=== PATIENT | male | born 1990 | race Caucasian/White ===

== ENCOUNTER 2020-05-28 08:00 | Outpatient (RCR) | payer SELFPAY ==
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
== END 2020-05-28 19:00 | disposition home or self-care (01) ==
LOC: OT 08:00
DX: R69 Illness, unspecified (principal)
CPT/HCPCS: 97110; 97140; 97166; 97530

== ENCOUNTER → 2020-06-15 15:07 | Outpatient (CLI) | payer MEDICAID, SELFPAY ==
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
== END ==
PROVIDERS: PCP Internal Medicine; Referring Provider Psychiatry & Neurology Neurology; Visit Provider Psychiatry & Neurology Neurology
DX: G54.0 Brachial plexus disorders (principal); T14.8XXA Other injury of unspecified body region, initial encounter
CPT/HCPCS: 72156; 73220; A9575

== ENCOUNTER → 2020-06-16 13:34 | Outpatient (CLI) | payer MEDICAID, SELFPAY ==
[2020-06-16 13:55] LABS: Hematocrit 43.9 % (40-54); Hemoglobin 14.6 g/dL (13.0-16.5); Mean Corp Hgb Conc 33.3 g/dL (32-36); Mean Corpuscular Hgb 32.5 pg (27.0-32.0); Mean Corpuscular Volume 97.8 fL (80-94); Mean Platelet Vol. 9.3 fl (6.2-12.0); Platelet Count 265 K/mm3 (150-450); RBC Distribution Width CV 12.2 % (11.6-14.6); RBC Distribution Width SD 44.4 fl (35.1-43.9); Red Blood Count 4.49 M/mm3 (4.6-6.2); White Blood Count 4.8 K/mm3 (4.4-11.0)
[2020-06-16 14:26] LABS: Vitamin B12 436 pg/mL (211-911)
[2020-06-16 14:45] LABS: ALB/GLOB Ratio 1.3 RATIO (0.9-2.4); AST(SGOT) 11 U/L (15-37); Alanine Aminotransfer ALT/SGPT 23 U/L (16-61); Albumin, Serum 4.1 g/dL (3.2-5.0); Alkaline Phosphatase 68 U/L (45-117); Anion Gap 6 (5-15); BUN 8 mg/dL (7-18); BUN/Creat Ratio 12.7 RATIO (10-20); Calcium,Total 9.1 mg/dL (8.5-10.1); Chloride 106 mmol/L (98-107); Creatinine, Serum 0.63 mg/dL (0.70-1.30); EST Glomerular Filtration Rate 160 mL/min (>60); Est Glom Filt Rate - Afr Amer 194 mL/min (>60); Globulin 3.2 g/dL (2.2-4.2); Glucose 97 mg/dL (74-106); Potassium 3.8 mmol/L (3.5-5.1); Protein, Total 7.3 g/dL (6.4-8.2); Sodium Level 139 mmol/L (136-145)
[2020-06-25 13:03] LABS: Vitamin B1, Thiamine 129.9 nmol/L (66.5-200.0)
== END ==
PROVIDERS: PCP Internal Medicine; Referring Provider Psychiatry & Neurology Neurology; Visit Provider Psychiatry & Neurology Neurology
DX: G54.0 Brachial plexus disorders (principal); T14.8XXA Other injury of unspecified body region, initial encounter; S14.2 Injury of nerve root of cervical spine; S14.3XXA Injury of brachial plexus, initial encounter
CPT/HCPCS: 36415; 80053; 82607; 82746; 84425; 84443; 85027

== ENCOUNTER → 2020-06-17 13:54 | Outpatient (CLI) | payer MEDICAID, SELFPAY | PROVIDERS: PCP Internal Medicine; Referring Provider Psychiatry & Neurology Neurology; Visit Provider Psychiatry & Neurology Neurology | DX: G54.0 Brachial plexus disorders (principal); S14.2 Injury of nerve root of cervical spine ==

== ENCOUNTER → 2020-06-18 13:52 | Outpatient (CLI) | payer MEDICAID, SELFPAY ==
--- NOTE | 2020-06-18 13:53 | MRI_ITS ---
ACR Level 3 findings have been noted. An addendum which confirms receipt of the report will follow. STUDY: MRI THORACIC SPINE WITH AND WITHOUT CONTRAST REASON FOR EXAM: Male, 30 years old. Suspicious incidental thoracic spinal cord tumor on recent MRI of the right brachial plexus of 06/15/2020. For further evaluation. TECHNIQUE: 15ml IV Dotarem was administered for the contrast portion of the examination. Routine pulse sequences of the thoracic spine without and with contrast. COMPARISON: None. FINDINGS: Normal kyphosis of the thoracic spine. There is no substantial scoliosis. T1-2, T2-3, T3-4, T4-5, T5-6, T6-7, T7-8, T8-9, T9-10, T10-11, T11-12: Minimal disc space height narrowing with minimal disc space hydration at T4-T5, T7-T8 and T8-T9 disc space levels. Normal remaining disc space heights. Normal vertebral bodies and endplates. No ventral extradural defects. No intradural mass lesions. Normal bilateral intervertebral neural foramina. No extruded disc fragments. Abnormal expansile T2 FLAIR hyperintensity of the thoracic spinal cord from the T4-T5 disc space level down to the mid T6 vertebral body level. This is mildly hypointense on T1. No obvious contrast enhancement. Mild enlargement of the thoracic spinal cord with T2 FLAIR hyperintensity at the lower T7 vertebral body level down to the lower T8 vertebral body level. This did not enhance with contrast. Additional intramedullary high signal intensity of the thoracic spinal cord at T10 down to T11. They appear more linear without definite expansion of the spinal cord. This did not enhance with contrast. Normal conus medullaris but termination is not included. The conus extends below the lower L1 vertebral body level. The soft tissue structures are unremarkable. No intradural or extradural enhancing mass lesions. There are prominent asymmetric subarachnoid spaces at T6 down to T9 vertebral body levels. I am uncertain if these are due to adhesions forming subarachnoid cysts. MRI/Spine Thoracic W/WO Contrast IMPRESSION: Abnormal intramedullary expansile lesion of the thoracic spinal cord at T4-T5 down to the lower T6 vertebral body level and abnormal nonexpansile intramedullary lesion of the thoracic spinal cord at the lower T7 down to the lower T8 vertebral body and at the T10 down to T11 vertebral body levels. None of these enhance with intravenous contrast. Additionally, there are asymmetric prominent subarachnoid spaces at T6 down to T9 vertebral bodies uncertain for posttraumatic adhesions forming subarachnoid cysts. The absence of contrast enhancement does not favor neoplasm. They may be posttraumatic changes. The possibility of nonenhancing neoplasm of the thoracic spinal cord involving T5 down to T6 cannot be entirely excluded. Follow-up MRI of the thoracic spine with and without contrast and correlation with CSF findings will be helpful for further evaluation. Electronically Signed: Burak Hylton MD at 13:19 EST , Service support ,
== END ==
PROVIDERS: PCP Internal Medicine; Referring Provider Psychiatry & Neurology Neurology; Visit Provider Psychiatry & Neurology Neurology
DX: G95.89 Other specified diseases of spinal cord (principal)
CPT/HCPCS: 72157; A9575

== ENCOUNTER → 2020-06-23 17:14 | Outpatient (CLI) | payer MEDICAID, SELFPAY ==
[2020-06-27 20:07] LABS: Testosterone, Free 9.57 ng/dL (5.00-21.00)
[2020-06-27 21:17] LABS: Testosterone, % Free 3.52 % (1.50-4.20); Testosterone, Total 272 ng/dL (264-916)
== END ==
PROVIDERS: PCP Internal Medicine; Referring Provider Psychiatry & Neurology Neurology; Visit Provider Psychiatry & Neurology Neurology
DX: E29.1 Testicular hypofunction (principal)
CPT/HCPCS: 36415; 84402; 84403

== ENCOUNTER 2024-06-14 11:52 | Emergency (ER) | payer MEDICARE, SELFPAY ==
[2024-06-14] VITALS (7 sets, daily range): BP systolic 128–157; BP diastolic 92–108; PULSE 78–102; RESP 14–18; TEMP 36.8–36.9; O2SAT 20–100; BMI 22.7
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
--- NOTE | 2024-06-14 12:35 | EKG12_ITS ---
Test Reason : CP Blood Pressure : */* mmHG Vent. Rate : 94 BPM Atrial Rate : 94 BPM P-R Int : 162 ms QRS Dur : 94 ms QT Int : 326 ms P-R-T Axes : 69 82 61 degrees QTcB Int : 407 ms Normal sinus rhythm Normal ECG Confirmed by Terrell Lindquist ([id number]), newspaper editor ERICA MAST ([id number]) on 06/17/2024 9:56:05 AM Referred By: SAVANNAH/LIZ Confirmed By: Terrell Lindquist
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
[2024-06-14 13:12] LABS: Absolute Lymphocyte Count 1.71 X10^3/uL (0.83-4.51); Absolute Neutrophil Count 6.9 X10^3/uL (2.0-7.7); Basophil# 0.02 X10^3/uL; Basophil% 0.2 % (0-1); Eosinophil# 0.02 X10^3/uL; Eosinophils% 0.2 % (0-5); Hematocrit 42.6 % (40-54); Hemoglobin 14.4 g/dL (13.0-16.5); Lymphocyte # 1.71 X10^3/ul (0.83-4.51); Lymphocyte % 18.8 % (19-41); Mean Corp Hgb Conc 33.8 g/dL (32-36); Mean Corpuscular Hgb 32.7 pg (27.0-32.0); Mean Corpuscular Volume 96.8 fL (80-94); Mean Platelet Vol. 9.4 fl (6.2-12.0); Monocyte# 0.48 X10^3/uL; Monocyte% 5.3 % (0-10); NRBC Flagged by Analyzer 0 % (0-5); Neutrophil # 6.86 X10^3/uL (2.7-7.7); Neutrophil % 75.3 % (47-70); Platelet Count 304 K/mm3 (150-450); RBC Distribution Width CV 13.2 % (11.6-14.6); RBC Distribution Width SD 47.2 fl (35.1-43.9); White Blood Count 9.1 K/mm3 (4.4-11.0)
[2024-06-14 13:40] LABS: Anion Gap 6 (5-15); BUN 7 mg/dL (7-18); BUN/Creat Ratio 11.3 RATIO (10-20); Calcium,Total 9.8 mg/dL (8.5-10.1); Chloride 107 mmol/L (98-107); Creatinine, Serum 0.62 mg/dL (0.70-1.30); EST Glomerular Filtration Rate 158 mL/min (>60); Est Glom Filt Rate - Afr Amer 191 mL/min (>60); Estimated Creatinine Clearance 177.13 ml/min; Glucose 101 mg/dL (74-106); Potassium 3.7 mmol/L (3.5-5.1); Sodium Level 139 mmol/L (136-145); Troponin-I HS < 3 pg/mL (3.0-78.0)
[2024-06-14] MEDS: Piperacil/Tazobactam 4.5 GM in 0.9% Normal Saline (100mL MB+) 100 ML IV (16:22)
[2024-06-14] MEDS: HYDROmorphone 1 MG/ML Syringe IV (16:23)
[2024-06-14] MEDS: Ondansetron 4 MG/2 ML Vial IV (16:23)
[2024-06-14 16:36] LABS: International Normalized Ratio 1.1; Prothrombin Time (Protime)PT. 14.3 SECONDS (11.7-14.9)
[2024-06-14 16:37] LABS: Partial Thromboplast Time 30.2 Seconds (24.1-36.2)
[2024-06-14 16:47] LABS: AST(SGOT) 12 U/L (15-37); Alanine Aminotransfer ALT/SGPT 21 U/L (16-61); Alkaline Phosphatase 70 U/L (45-117); Bilirubin, Direct 0.15 mg/dL (0.00-0.30); Globulin 3.4 g/dL (2.2-4.2); Protein, Total 7.4 g/dL (6.4-8.2)
--- NOTE | 2024-06-14 17:00 | ED.RN ---
CALLED [facility] @ [phone] AND STILL NO UPDATE FOR THE PATIENT
[2024-06-14 17:02] LABS: Lactic Acid 0.9 mmol/L (0.4-1.9)
[2024-06-14] MEDS: Vancomycin HCl 1,750 MG in 0.9% Normal Saline (500mL Bag) 500 ML 250 MG IV (17:20)
--- NOTE | 2024-06-14 20:35 | CM.ED ---
Social Work Reason for visit: No PCP Patient verified that he does not have a PCP, patient recently moved to [place] from [place]. [facility] provider list was given. Patient also had questions regarding [place] Medicaid, SW answered questions as able and encourage patient to go through application process. No further needs identified at this time. Reny Mcdonough, INTEGRATION ENGINEER, SURVEY SUPERINTENDENT
--- NOTE | 2024-06-15 06:22 | ED.RN ---
This RN spoke to [facility] regarding pt's antibiotic dosages and times meds had been administered. Questions/concerns answered.
--- NOTE | 2024-06-15 06:42 | ED.RN ---
This nurse to room after being asked by MELVIN Navarro to address pt concerns. Pt concerned about transferring hospital being closest appropriate, pain medication, being able to eat and also stated he had received a call from [facility] that he needed to pay $1000 up front prior to transport. Spoke to Dr. Martinez, she states only [facility] and [facility] had specialties available to care for pt per Dr. Beatty, and that [facility] did not have any beds available. Phone call placed to [facility], [facility] states that if [facility] physician feels pt is stable for private care transport, that they will still accept pt as a transfer and he should be taken right back to a room and should bypass triage. Pt informed of same. Dr. Martinez states if pt wants anything other than tylenol, he will need to be observed. Informed pt of same, pt states he had been waiting over 10 hours at this point and just wanted to get to [facility]. Pt has reach lift truck driver, pt signs transfer form and private car transport, reach lift truck driver signs private car transport. Chart given to patient. Pt requests documentation from doctor that no other closer hospitals were available, Dr. Martinez documents what she was told by Dr. Beatty. Pt requests Dr. Beatty to be contacted and to document no other hospitals available, this nurse assures pt that this nurse will reach out to him and make request.
== END 2024-06-14 22:43 | disposition short-term general hospital (02) ==
PROVIDERS: Emergency Provider Emergency Medicine; Visit Provider Emergency Medicine
DX: R07.9 Chest pain, unspecified (principal); R22.1 Localized swelling, mass and lump, neck; J45.909 Unspecified asthma, uncomplicated; F17.210 Nicotine dependence, cigarettes, uncomplicated; R45.1 Restlessness and agitation
CPT/HCPCS: 70498; 71275; 80048; 80076; 83605; 84443; 84484; 85025; 85610; 85730; 87040; 93005; 96365; 96366; 96367; 96375; 99285; Q9967; A4216; J2405

== ENCOUNTER → 2024-06-24 | Outpatient (CLI) | payer MEDICARE, SELFPAY ==
[2024-06-24 11:57] LABS: Absolute Lymphocyte Count 1.24 X10^3/uL (0.83-4.51); Absolute Neutrophil Count 7.2 X10^3/uL (2.0-7.7); Basophil# 0.03 X10^3/uL; Basophil% 0.3 % (0-1); Eosinophil# 0.03 X10^3/uL; Eosinophils% 0.3 % (0-5); Hematocrit 33.4 % (40-54); Lymphocyte # 1.24 X10^3/ul (0.83-4.51); Lymphocyte % 13.8 % (19-41); Mean Corp Hgb Conc 32.9 g/dL (32-36); Mean Corpuscular Hgb 32.4 pg (27.0-32.0); Mean Corpuscular Volume 98.5 fL (80-94); Mean Platelet Vol. 9.3 fl (6.2-12.0); Monocyte# 0.46 X10^3/uL; Monocyte% 5.1 % (0-10); NRBC Flagged by Analyzer 0 % (0-5); Neutrophil # 7.19 X10^3/uL (2.7-7.7); Neutrophil % 80.1 % (47-70); Platelet Count 503 K/mm3 (150-450); RBC Distribution Width CV 13.9 % (11.6-14.6); RBC Distribution Width SD 48.9 fl (35.1-43.9); Red Blood Count 3.39 M/mm3 (4.6-6.2)
[2024-06-24 15:55] LABS: AST(SGOT) 14 U/L (<=37); Alanine Aminotransfer ALT/SGPT 15 U/L (<=46); Albumin, Serum 4.4 g/dL (3.5-5.0); Alkaline Phosphatase 54 U/L (40-129); Anion Gap 15 (5-15); BUN 9 mg/dL (4-19); BUN/Creat Ratio 16.2 RATIO (10-20); Bilirubin, Direct 0.17 mg/dL (0.00-0.30); Calcium 9.6 mg/dL (7.6-11.0); Carbon Dioxide 22.2 mmol/L (22.0-29.0); Chloride 106 mmol/L (96-108); Creatinine, Serum 0.55 mg/dL (0.70-1.20); EST Glomerular Filtration Rate 134 (>60); Globulin 2.6 g/dL (2.2-4.2); Glucose 106 mg/dL (70-99); Potassium 4.3 mmol/L (3.3-5.1); Sodium Level 142 mmol/L (133-145); Total Bilirubin 0.33 mg/dL (0.00-1.30)
== END | disposition home or self-care (01) ==
PROVIDERS: Referring Provider Pediatrics; Visit Provider Pediatrics
DX: T82.7XXA Infection and inflammatory reaction due to other cardiac and vascular devices, implants and grafts, initial encounter (principal); L02.11 Cutaneous abscess of neck; E87.0 Hyperosmolality and hypernatremia; X58.XXXA Exposure to other specified factors, initial encounter
CPT/HCPCS: 80048; 80076; 85025; 85049

== ENCOUNTER 2024-06-29 12:00 | Emergency (ER) | payer MEDICARE, SELFPAY ==
[2024-06-29 12:01] VITALS: BP 146/92; PULSE 111; RESP 19; TEMP 36.7; O2SAT 94
[2024-06-29 12:03] VITALS: BMI 19.1
[2024-06-29 12:04] VITALS: BP 146/92; PULSE 111; RESP 19; TEMP 36.7; O2SAT 94
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
[2024-06-29] MEDS: 0.9% Normal Saline (1000mL) 1,000 ML 1000 ML IV (13:12)
[2024-06-29] MEDS: Metoclopramide 10 MG/2 ML Vial IV (13:12)
[2024-06-29 13:24] LABS: Absolute Lymphocyte Count 0.96 X10^3/uL (0.83-4.51); Absolute Neutrophil Count 9.8 X10^3/uL (2.0-7.7); Basophil# 0.03 X10^3/uL; Basophil% 0.3 % (0-1); Eosinophil# 0.02 X10^3/uL; Eosinophils% 0.2 % (0-5); Hematocrit 38.2 % (40-54); Hemoglobin 13.1 g/dL (13.0-16.5); Lymphocyte # 0.96 X10^3/ul (0.83-4.51); Lymphocyte % 8.5 % (19-41); Mean Corp Hgb Conc 34.3 g/dL (32-36); Mean Corpuscular Hgb 33.2 pg (27.0-32.0); Mean Corpuscular Volume 96.7 fL (80-94); Mean Platelet Vol. 8.9 fl (6.2-12.0); Monocyte# 0.47 X10^3/uL; Monocyte% 4.2 % (0-10); NRBC Flagged by Analyzer 0 % (0-5); Neutrophil # 9.77 X10^3/uL (2.7-7.7); Neutrophil % 86.4 % (47-70); Platelet Count 646 K/mm3 (150-450); RBC Distribution Width CV 14.5 % (11.6-14.6); RBC Distribution Width SD 51.9 fl (35.1-43.9); Red Blood Count 3.95 M/mm3 (4.6-6.2); White Blood Count 11.3 K/mm3 (4.4-11.0)
[2024-06-29] MEDS: Pantoprazole Sodium 40 MG in 0.9% Normal Saline (100mL MB+) 100 ML 330 MG IV (13:28)
[2024-06-29 14:01] VITALS: BP 112/82; PULSE 74; RESP 16; O2SAT 97
[2024-06-29 14:20] LABS: Lipase 18 U/L (13-75)
[2024-06-29 14:22] LABS: ALB/GLOB Ratio 1.4 RATIO (0.9-2.4); AST(SGOT) 18 U/L (<=37); Alanine Aminotransfer ALT/SGPT 12 U/L (<=46); Albumin, Serum 5.1 g/dL (3.5-5.0); Alkaline Phosphatase 74 U/L (40-129); Anion Gap 22 (5-15); BUN 22 mg/dL (4-19); BUN/Creat Ratio 22.3 RATIO (10-20); Calcium,Total 10.8 mg/dL (7.6-11.0); Carbon Dioxide 21.9 mmol/L (21.0-32.0); Chloride 100 mmol/L (98-108); EST Glomerular Filtration Rate 102 (>60); Estimated Creatinine Clearance 92.29 ml/min (50-250); Globulin 3.5 g/dL (2.2-4.2); Glucose 160 mg/dL (70-99); Potassium 3.3 mmol/L (3.3-5.1); Protein, Total 8.6 g/dL (5.9-8.4); Sodium Level 144 mmol/L (133-145); Total Bilirubin 0.67 mg/dL (0.00-1.30)
[2024-06-29 14:27] LABS: Lactic Acid 3.8 mmol/L (0.0-2.0)
--- NOTE | 2024-06-29 14:59 | ED.RN ---
CALLED [facility] @ [phone]. FAXED FACE SHEET AND PUSHED IMAGES
[2024-06-29] MEDS: HYDROmorphone 1 MG/ML Syringe IV (15:00)
[2024-06-29] MEDS: Ondansetron 4 MG/2 ML Vial IV (15:00)
--- NOTE | 2024-06-29 15:20 | ED.RN ---
ACCEPTED AT [facility] AT [address] CHRISTINE TO THEIR ED
--- NOTE | 2024-06-29 15:23 | ED.RN ---
Per Dr. Watts, new IV, potassium and fluids do not need to be started at this time due to patient private transporting to [facility]
[2024-06-29 15:36] VITALS: BP 112/82; PULSE 74; RESP 16; TEMP 36.7; O2SAT 97
== END 2024-06-29 15:47 | disposition other institution (70) ==
PROVIDERS: Emergency Provider Emergency Medicine; Visit Provider Emergency Medicine
DX: K92.0 Hematemesis (principal); R10.9 Unspecified abdominal pain; E87.20 Acidosis, unspecified; E87.6 Hypokalemia; Z87.891 Personal history of nicotine dependence; Z89.201 Acquired absence of right upper limb, unspecified level; J45.909 Unspecified asthma, uncomplicated; Z79.82 Long term (current) use of aspirin; R06.09 Other forms of dyspnea; Z98.890 Other specified postprocedural states
CPT/HCPCS: 71260; 74177; 80053; 83605; 83690; 85025; 96365; 96375; 99285; Q9967; A4216; J2405